=== PATIENT | female | born 1960 | race Caucasian/White ===

== ENCOUNTER 2025-02-12 15:12 | Inpatient (IN) | payer OTHER, SELFPAY ==
[2025-02-12] VITALS (13 sets, daily range): BP systolic 99–126; BP diastolic 57–75; BMI 20.5
--- NOTE | 2025-02-12 09:55 | ED.GENMED ---
History of Present Illness
General
Chief Complaint: Overdose Unintentional
Time Seen by Provider: 02/12/25 09:54
History of Present Illness
History of Present Illness:
TIME OF INITIAL ENCOUNTER: 9:50 AM
HPI: I spoke to EMS for history. The patient came in from home by ambulance due to being found unresponsive. The patient reportedly is on a Dilaudid infusion and also takes oral Dilaudid. She was found with agonal respirations and pinpoint
pupils. She was given 1 mg of Narcan earlier. Blood sugar was normal. EMS also reports that the patient had been depressed related to her son who was mental illness. She was given an additional 1 mg of Narcan prior to arrival by EMS. Of note
stated that her blood sugars around 50 and did give her juice earlier this morning.She was slightly hyperglycemic for EMS.
EXAM:
GENERAL: The patient is ill-appearing and obtunded
HEENT: Moist oral mucosa
HEAD: There is erythema surrounding granulation tissue over the left parietal scalp
CARDIOVASCULAR: No murmurs, normal heart rate, regular rhythm, No chest wall tenderness
PULMONARY: No respiratory distress, breath sounds are clear and equal
ABDOMEN: Soft with no peritoneal signs, no tenderness
NEUROLOGIC: Fair strength all extremities, obtunded
PSYCHIATRIC: The patient has trouble focusing and could not accurately state her current last name (continued to state her maiden name), poor insight and judgment
EXTREMITIES: Nontender, no edema, moves all extremities equally
SKIN: Throughout her stay in the ED, the patient became somewhat diaphoretic
NUMBER AND COMPLEXITY OF PROBLEMS ADDRESSED AT THE ENCOUNTER
� Chronic conditions affecting care: Pancreatitis on Creon, smoker, anxiety/depression
� Acute Exacerbation and/or Progression of Chronic Illness: This is an acute problem
� Differential Diagnosis includes: Narcotic misuse, narcotic overuse, polypharmacy
AMOUNT AND/OR COMPLEXITY OF DATA TO BE REVIEWED AND ANALYZED
� I performed an independent evaluation of and my interpretation is:
EKG: Sinus 57, rightward axis deviation, poor R wave progression, nonspecific ST abnormality
CT: CT head shows no acute abnormality
X-rays: I see no clear sign of abnormality on chest x-ray including no sign of aspiration.
Laboratory Studies: White count 7.7, hemoglobin 12.6, other than glucose of 300+, chemistries unremarkable, alcohol undetected
Other:
� Review of other/old records: I reviewed records from 2015 which shows some scanned in records from [place] (alcoholic pancreatitis)
� Clinical information was obtained by an independent historian: I spoke to at bedside. He states that the used to go to [place] but has had multiple terrible experiences there they do not want to go back there. She
is on a pain pump known to Arcadio Grande and states that her pain pump is set monthly and he has no way of adjusting the dosing. states that she takes Dilaudid 3 times a day orally as well
� Prescriptions/Medications Considered but not given:
� Further testing considered but not performed:
RISK OF COMPLICATIONS AND/OR MORBIDITY OR MORTALITY OF PATIENT MANAGEMENT
� Social determinants of health affecting care: Lives at home with
� Discussion with other providers: I discussed case with her painter helper spray, Arcadio Grande who recommended that I speak to Dr. Joy of the [facility], . I spoke to Dr. Joy who recommends
supportive care including additional Narcan if needed. He agrees to see the patient in consult. I also spoke to Jany, ED pharmacist who indicates the patient has a Medtronic intrathecal pain pump located in the left lower abdomen.
� Escalation of care including admission/observation vs risk of discharge considered: The patient is overall improved compared to upon EMS initial evaluation after 2 rounds of 1 mg Narcan. Her respiratory rate through the
emergency department stay is near 20 but is rather shallow. The patient still cannot provide any meaningful history. She still appears obtunded. She is not well enough to go home. I spoke to pain management as summarized above.
ANY OTHER UPDATES:
I reevaluated patient several times in the emergency department. Each time there has been some slight improvement regarding her mental status and overall level of consciousness. Her respiratory rate has remained the same throughout her stay in the
Emergency Department. Planning on having her kept in the hospital in case she needs more Narcan.
1 PM: I reassessed patient. The patient still has decreased level of consciousness and diaphoretic. Awaiting hospitalist for admission. Will give additional IV fluids as her blood pressure is slightly lower now. Suspect polypharmacy.
states that she also takes a benzo once a day. He also tells me that the pain management doctors also gave her a medicine 'to boost the effects of the narcotic' but is not sure what they gave her (Movantik?).
Past History
Social History
Tobacco: Smoker
Alcohol: Occasional
Drug: None
Living: with family
Employment: Not employed
Family History
Family History: Other (Noncontributory)
Phy Exam
Physical Exam
Physical Exam:
See HPI
Course
Orders/Labs/Results
Orders:
Orders
02/12/25 09:54
0.9% Sodium Chloride 1000 ml [Nss] 1,000 ml IV BOLUS
02/12/25 09:55
CT Head W/o Iv Contrast Urgent
Comment:
Reason For Exam: alt ms
02/12/25 10:01
Naloxone [Narcan] 0.4 mg .ROUTE .STK-MED ONE
02/12/25 10:03
Alcohol Urgent
Complete Blood Count/With Diff Urgent
Comprehensive Metabolic Panel Urgent
Lipase Urgent
Magnesium Urgent
Total CK [Creatine Phosphokinase] Urgent
02/12/25 11:25
Electrocardiogram (*1) Urgent
Reason for Study: Shortness of Breath
EKG- Treatment ONCE
02/12/25 11:26
CR Chest Portable - 1 View Urgent
Comment:
Reason For Exam: unresponsive, vomited, narcan, ?aspiration
Reason Study Needs to be Portable: Patient Unstable
02/12/25 11:59
Fentanyl, Urine Urgent
Urinalysis Reflex To Culture Urgent
Date Specimen was Collected: 02/12/25
Time Specimen was Collected: 11:42
Urine Drug Abuse Screen Urgent
Date Specimen was Collected: 02/12/25
Time Specimen was Collected: 11:42
Urine Microscopic Reflex Cult Urgent
02/12/25 13:01
NSS 1000mL Bolus WIDE OPEN 0.9% Sodium Chloride 1000 ml [Nss] 1,000 ml IV BOLUS
Abnormal Lab Results
02/12/25 02/12/25
10:03 11:59
RBC 3.89 L 10^6/uL
(4.20-5.40)
MCH 32.4 H pg
(27.0-31.0)
Eosinophils % 6.1 H %
(0-6)
BUN 18 H mg/dl
(7-17)
Creatinine 0.5 L mg/dL
(0.6-1.0)
Glucose 325 H mg/dl
(70-99)
Total Protein 5.9 L g/dl
(6.3-8.2)
Lipase 18 L U/L
(23-300)
Ur Occult Blood Reflex 4+ A
(Negative)
Urine Glucose 4+ A
(Negative)
Urine Albumin (Reflex) 2+ A
(Neg - Trace)
Urine Opiates Screen Positive H
(Negative)
Ur Tricyclics Screen Positive H
(Negative)
U Benzodiazepines Scrn Positive H
(Negative)
02/12/25 10:03
02/12/25 10:03
Vital Signs
Initial and Last Documented VS:
Initial Vital Signs
Temp Pulse Resp BP Pulse Ox
37.5 C 75 20 121/69 99
02/12/25 09:50 02/12/25 09:50 02/12/25 09:50 02/12/25 09:50 02/12/25 09:50
Last Documented Vital Signs
Temp Pulse Resp BP Pulse Ox
37.5 C 57 15 101/58 96
02/12/25 09:50 02/12/25 12:15 02/12/25 12:15 02/12/25 12:00 02/12/25 12:15
*Critical Care Note
Total Time (30-74mins, 75-104mins- exclusive of procedures): 45 minutes
comment:
The patient arrives obtunded. I frequently reassessed the patient and considered Narcan however the patient's respiratory rate has remained normal. She remains somewhat ill-appearing and will require hospitalization. I continue to reassess her
frequently to assess for any need for Narcan.
ED Attending Note
-
Portions of this chart may have been created with voice recognition software.� Occasional wrong word or��sound alike� substitutions may have occurred due to the inherent limitations of voice recognition software.
Discharge Plan
Departure
Patient Disposition: Admit
Date of Disposition: 02/12/25
Time of Disposition: 12:23
Presentation/result/management discussed w/ accepting MD/DO: Hospitalist
Patient with high blood pressure during this ER visit?: Yes
Discharge Problem:
Narcotic overdose
Prescriptions:
No Action
duloxetine 60 MG capsule,delayed release(DR/EC)
120 mg PO DAILY
gabapentin 600 mg tablet
600 mg PO TID
tizanidine 4 mg tablet
4 mg PO HS
quetiapine 200 mg tablet
200 mg PO QPM
quetiapine 100 mg tablet
100 mg PO DAILY
alprazolam 0.5 mg tablet
0.5 mg PO BID
insulin aspart U-100 [Novolog U-100 Insulin aspart] 100 unit/mL solution
6 unit SC MEALS
bupropion HCl 75 mg tablet
75 mg PO DAILY
hydromorphone 4 mg tablet
4 mg PO Q6HPRN PRN (Reason: severe/breakthrough pain)
Linzess 145 mcg capsule
145 mcg PO DAILY
Movantik 25 mg tablet
25 mg PO DAILY
Hydromorphone Bupivicaine Pump
1 dose intrathecal .CONTINUOUS
Rx Instructions:
02/12/25: confirmed with [facility]
Medtronic impantable pump - intrathecal continuous infusion
hydromorphone 0.208 mg/hr ; bupivicaine 0.1029 mg/hr
Last filled 01/01/25; next fill due 02/15/25
Referrals:
NONE,* [Family Provider] -
Interventions
Interventions:
*Risk Screen - Suicide Last Done: 02/12/25 09:50
*General Assessment Last Done: 02/12/25 09:50
*Neglect/Abuse Screening Last Done: 02/12/25 09:50
ED- Cardiac Assessment Last Done: 02/12/25 11:18
ED- Neurological Assessment Last Done: 02/12/25 11:18
ED-Psychological Assessment Last Done: 02/12/25 11:18
ED- Pulmonary Assessment Last Done: 02/12/25 11:18
Discharge Date and Time
Print Language: MONEGASQUE
[2025-02-12] MEDS: NSS 1000 IV ×3 (10:05→16:51)
[2025-02-12 10:14] LABS: % Eosinophils 6.1 % (0-6); % Immature Granulocytes 0.1 % (0-0.5); % Lymphocytes 35.2 % (20.5-51.1); % Monocytes 7.3 % (1.7-9.3); % Neutrophils 50.3 % (42.2-75.2); Absolute Basophils 0.1 10^3/uL (0-0.2); Absolute Eosinophils 0.5 10^3/uL (0-0.7); Absolute Lymphocytes 2.7 10^3/uL (1.2-3.4); Absolute Monocytes 0.6 10^3/uL (0.1-0.6); Absolute Neutrophils 3.9 10^3/uL (1.4-6.5); Hematocrit 37.2 % (37.0-47.0); Hemoglobin 12.6 g/dL (12.0-16.0); Mean Corp Hgb Conc. 33.9 g/dL (33.0-37.0); Mean Corpuscular Hgb 32.4 pg (27.0-31.0); Mean Corpuscular Volume 95.6 fL (81.0-99.0); Mean Platelet Volume 10.4 fL (7.4-10.4); Nucleated Red Blood Cells % 0 %; Platelet Count 298 10^3/uL (130-400); Red Blood Cell Count 3.89 10^6/uL (4.20-5.40); White Blood Cell Count 7.7 10^3/uL (4.8-10.8)
[2025-02-12 10:24] LABS: ALT (SGPT) 25 U/L (0-35); AST (SGOT) 23 U/L (14-36); Albumin 3.5 g/dl (3.5-5.0); Alkaline Phosphatase 98 U/L (38-126); Blood Urea Nitrogen 18 mg/dl (7-17); Calcium 9.2 mg/dl (8.4-10.2); Carbon Dioxide 30 mmol/L (22-30); Chloride 105 mmol/L (98-107); Creatine Phosphokinase 55 U/L (30-135); Glucose 325 mg/dl (70-99); Lipase 18 U/L (23-300); Magnesium 1.8 mg/dl (1.6-2.3); Potassium 4.2 mmol/L (3.5-5.1); Sodium 141 mmol/L (135-145); Total Bilirubin 0.4 mg/dl (0.2-1.3); Total Protein 5.9 g/dl (6.3-8.2); eGFR > 60.00
[2025-02-12 10:26] LABS: Alcohol None Detected
--- NOTE | 2025-02-12 11:02 | PHANOTE ---
Med Rec Note:
Spouse unsure of all medications, besides Hydromorphone Tablets and Hydromorphone pain pump. Called [facility] pharmacy for medication confirmation and directions.
[2025-02-12 12:37] LABS: Urine Albumin 2+ (Neg - Trace); Urine Bilirubin Negative (Negative); Urine Character Clear (Clear); Urine Color Yellow; Urine Glucose 4+ (Negative); Urine Ketone Negative (Negative); Urine Leukocyte Negative (Negative); Urine Nitrite Negative (Negative); Urine Occult Blood 4+ (Negative); Urine Urobilinogen Negative (Neg - 1+)
[2025-02-12 12:49] LABS: Amphetamines Negative (Negative); Barbiturates Negative (Negative); Benzodiazepines Positive (Negative); Buprenorphine Negative (Negative); Cocaine Negative (Negative); Methamphetamines Negative (Negative); Opiates Positive (Negative); Tricyclic Antidepressants Positive (Negative)
[2025-02-12 12:50] LABS: Marijuana Negative (Negative); Methadone Negative (Negative); Phencyclidine Negative (Negative)
[2025-02-12 13:04] LABS: Urine Bacteria Few (Negative); Urine Red Blood Cell 30-40 /HPF (0-2); Urine Squamous Cell 0-2 /LPF (Few); Urine White Cell 0-2 /HPF (0-5)
[2025-02-12 13:08] LABS: Fentanyl, Urine Negative (Negative)
[2025-02-12 14:46] LABS: B.E. 0.6 mmol/L; HCO3 26.6 mmol/L (21-28); O2 Saturation % 99.5 % (94-98); PCO2 47 mmHg (32-35); PO2 111 mmHg (83-108); pH 7.36 (7.35-7.45)
[2025-02-12 15:44] LABS: Glucose - Point of Care 283 mg/dl (70-99)
--- NOTE | 2025-02-12 17:13 | HPS.HSE ---
Addendum entered and electronically signed by Tahmina Melo MD 02/12/25 17:50:
I personally performed a history and physical exam of the patient and discussed management with the resident. I reviewed the resident's note and agree with the documented findings and plan of care HPI/CC.
GENERAL: chronically ill appearing female appears older than stated age in no apparent distress--sleepy but responsive
HEENT: NC/AT--O2 NC in [address]--poor dentition
HEART: regular rate and rhythm, +S1, +S2
LUNGS : clear to auscultation bilaterally
ABDOM: soft, tender diffusely no guarding or rebound, nondistended, + bowel sounds--intrathecal pump noted on abdomen
EXT: no cyanosis, clubbing, or edema
NEUROLOGIC: sleepy but responsive
change in MS/obtunded--Suspected opioid overdose secondary to medicating with opioids, benzodiazepines, tricyclic antidepressants--admit to IMU--consult Dr. Joy from pain management-- Monitor respiratory status and oxygenation level- Narcan as
needed- Neurochecks every 2 hours-IV fluids- N.p.o.- Physical therapy/Occupational Therapy- Speech therapy
Microscopic hematuria seen on urinalysis--No recent history of coagulants, antiplatelet agents, urinary tract infections, kidney stones, malignancies, dysuria has a history of smoking since 13 years- Renal ultrasound with bladder- Monitor renal
function- Repeat urinalysis- IV fluids
Type 2 DM with Hyperglycemia--uncontrolled--SSI--check HGB F6G--eitu insulin as able
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
Depression/anxiety-- Held bupropion, duloxetine, alprazolam
DVT proph --Enoxaparin
code status--FULL CODE
Original Note:
Family Physician
-
Family Physician: * NONE
Chief Complaint
-
Patient was in a obtunded state.
History of Present Illness
64-year-old female, full code was found other Unresponsive today morning found by her to understate with mouth open and tongue hanging out. He checked her blood sugar using a glucometer at home since she is a diabetic and found her blood
sugar to be 49, then gave her orange juice, then sugar went up to 75. However she was still not responsive so they called EMS and she arrived to [place] ED via ambulance. Has an intrathecal pain pump on the left side of her abdomen for chronic
pancreatitis treated through Whipple's procedure. Currently on hydromorphone administered by her pain specialist at [facility].
Medical History
Past Medical History
Past Medical History: Reports IDDM and Other (Depression, pancreatitis)
Past Surgical History: Reports Other (Whipples procedure)
Social History
Tobacco: Smoker (Pack a day since 13 years)
Alcohol: Former (Quit 12 years ago)
Drug: None
Personal:
Living: With Family
Employment: Disabled
Family History
Family History: Not pertinent
Allergies / Home Medications
Allergies reflects when Allergies were last updated in [employer].
Home Medications with original date entered in [employer]
Allergy/Medication List:
Allergies
Allergy/AdvReac Type Severity Reaction Status Date / Time
codeine Allergy Rash Verified 02/12/25 10:01
morphine Allergy Swelling Verified 02/12/25 10:01
oxycodone Allergy Rash Verified 02/12/25 10:01
Home Medications
duloxetine 60 mg capsule,delayed release 120 mg PO DAILY 05/13/15
Hydromorphone Bupivicaine Pump 1 dose intrathecal .CONTINUOUS chronic pain 02/12/25
alprazolam 0.5 mg tablet 0.5 mg PO BID 02/12/25
bupropion HCl 75 mg tablet 75 mg PO DAILY 02/12/25
gabapentin 600 mg tablet 600 mg PO TID 02/12/25
hydromorphone 4 mg tablet 4 mg PO Q6HPRN PRN severe/breakthrough pain 02/12/25
insulin aspart U-100 100 unit/mL subcutaneous solution (Novolog U-100 Insulin aspart) 6 unit SC MEALS 02/12/25
linaclotide 145 mcg capsule (Linzess) 145 mcg PO DAILY 02/12/25
naloxegol 25 mg tablet (Movantik) 25 mg PO DAILY 02/12/25
quetiapine 100 mg tablet 100 mg PO DAILY 02/12/25
quetiapine 200 mg tablet 200 mg PO QPM 02/12/25
tizanidine 4 mg tablet 4 mg PO HS 02/12/25
Review of Systems
-
Constitutional: Denies Fever or Chills
Respiratory: Denies Cough
Cardiac: Denies Chest Pain or Palpitations
Abdomen/GI: Denies Abdominal Pain, Nausea, Vomiting or Diarrhea
: Reports Difficulty Voiding
Musculoskeletal: Denies Joint Pain
Skin: Denies Itching or Rash
Physical Exam
Vital Signs
Vital Signs
Temp Pulse Resp BP Pulse Ox
99.5 F 44 12 101/59 96
02/12/25 09:50 02/12/25 16:00 02/12/25 16:00 02/12/25 16:00 02/12/25 15:45
Physical Exam
General: Cachectic
Respiratory: Clear
Cardiac: S1/S2 and Regular Rhythm
GI: Soft, Non Tender and Non Distended
Skin: Warm and Dry
Neuro: Awake, Alert, Oriented and AO x 3
Laboratory Results
-
02/12/25 10:03
02/12/25 10:03
Laboratory Results
pH 7.36 (7.35-7.45) 02/12/25 14:39
pCO2 47 mmHg (32-35) H 02/12/25 14:39
pO2 111 mmHg (83-108) H 02/12/25 14:39
HCO3 26.6 mmol/L (21-28) 02/12/25 14:39
Total Bilirubin 0.4 mg/dl (0.2-1.3) 02/12/25 10:03
AST 23 U/L (14-36) 02/12/25 10:03
ALT 25 U/L (0-35) 02/12/25 10:03
Alkaline Phosphatase 98 U/L (38-126) 02/12/25 10:03
Lipase 18 U/L (23-300) L 02/12/25 10:03
Data Reviewed
-
CT Scan: Report Reviewed by me and Discussed with Physician
MRI: Report Reviewed by me and Discussed with Physician
Lab Data: Labs Reviewed by me and Discussed with Physician
Impression/Plan
-
Suspected opioid overdose secondary to medicating with opioids, benzodiazepines, tricyclic antidepressants:
- Admit to IMU
- Monitor respiratory status and oxygenation level
- Narcan as needed
- Neurochecks every 2 hours-IV fluids
- N.p.o.
- Physical therapy/Occupational Therapy
- Speech therapy
- CBC, CMP
- Try to consult with her pain doctor at [facility]
Microscopic hematuria seen on urinalysis:
-No recent history of coagulants, antiplatelet agents, urinary tract infections, kidney stones, malignancies, dysuria has a history of smoking since 13 years
- Renal ultrasound with bladder
- Monitor renal function
- Repeat urinalysis
- IV fluids
Hyperglycemia
-monitor blood glucose
- HbA1c
- Sliding scale insulin, Lantus 22 units
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
- On intrathecal left-sided abdominal pain pump
- Held pain medications that she takes at home like hydromorphone and gabapentin until evaluated by pain
Depression/anxiety:
- Held bupropion, duloxetine, alprazolam
Enoxaparin 30 Mg for DVT prophylaxis
Full code
[2025-02-12 18:34] LABS: Glucose - Point of Care 238 mg/dl (70-99)
[2025-02-12] MEDS: NICODERM TRANSDERMAL 21 MG TRANSDERM (20:33)
[2025-02-12 22:14] LABS: Glucose - Point of Care 217 mg/dl (70-99)
[2025-02-12] MEDS: NOVOLOG FLEXPEN-HIGH RESISTANCE SC (22:17)
[2025-02-12] MEDS: LANTUS 0.22 UNITS SC (22:20)
[2025-02-12] MEDS: NOVOLOG FLEXPEN-HIGH RESISTANCE 4 UNITS SC (23:54)
[2025-02-13] VITALS (17 sets, daily range): BP systolic 103–143; BP diastolic 58–77; PULSE 42–52; O2SAT 96–99
[2025-02-13] MEDS: NSS 1000 IV (02:32)
--- NOTE | 2025-02-13 03:10 | PTCARENOTE ---
Rec'd pt as admit from ED. Pt AAOx3, drowsy but arousable to voice. Pt states feeling tired, having little memory of what occurred that brought her to ED, but overall understanding of current situation and status. SB on CM, as low as 30. PILER
contacted, 2L O2 placed per PILER recommendation. Pt c/o urge to void, but only able to void 100mls. Bladder scan >400. Straight cath with output 600ml. Pt continues with c/o urge to void. Education provided, will continue to bladder scan per
protocol. Call alexander within reach.
[2025-02-13 04:44] LABS: % Basophils 0.8 % (0-2); % Eosinophils 3.8 % (0-6); % Immature Granulocytes 0.3 % (0-0.5); % Lymphocytes 23.3 % (20.5-51.1); % Monocytes 6.5 % (1.7-9.3); % Neutrophils 65.3 % (42.2-75.2); Absolute Basophils 0.1 10^3/uL (0-0.2); Absolute Eosinophils 0.3 10^3/uL (0-0.7); Absolute Lymphocytes 2.1 10^3/uL (1.2-3.4); Absolute Monocytes 0.6 10^3/uL (0.1-0.6); Absolute Neutrophils 5.9 10^3/uL (1.4-6.5); Hematocrit 36.7 % (37.0-47.0); Hemoglobin 12.2 g/dL (12.0-16.0); Mean Corp Hgb Conc. 33.2 g/dL (33.0-37.0); Mean Corpuscular Hgb 32.2 pg (27.0-31.0); Mean Corpuscular Volume 96.8 fL (81.0-99.0); Mean Platelet Volume 10.5 fL (7.4-10.4); Nucleated Red Blood Cells % 0 %; Platelet Count 279 10^3/uL (130-400); Red Blood Cell Count 3.79 10^6/uL (4.20-5.40); Red Cell Dist. Width 13.1 % (11.5-14.5)
[2025-02-13] MEDS: TORADOL 30 MG IV (05:01)
[2025-02-13 05:18] LABS: ALT (SGPT) 19 U/L (0-35); AST (SGOT) 20 U/L (14-36); Albumin 2.9 g/dl (3.5-5.0); Alkaline Phosphatase 84 U/L (38-126); Blood Urea Nitrogen 14 mg/dl (7-17); Calcium 8.5 mg/dl (8.4-10.2); Carbon Dioxide 26 mmol/L (22-30); Chloride 116 mmol/L (98-107); Creatine Phosphokinase 35 U/L (30-135); Estimated Creatinine Clearance 76 ml/min; Glucose 75 mg/dl (70-99); Magnesium 1.8 mg/dl (1.6-2.3); Potassium 3.8 mmol/L (3.5-5.1); Sodium 144 mmol/L (135-145); Total Bilirubin 0.4 mg/dl (0.2-1.3); Total Protein 5.2 g/dl (6.3-8.2); eGFR > 60.00
[2025-02-13 05:47] LABS: TSH 0.88 uIU/ml (0.47-4.68)
[2025-02-13] MEDS: LINZESS 145 MCG PO (05:57)
--- NOTE | 2025-02-13 07:34 | CON.NEURO4 ---
Consultation - Neurology 4
-
CONSULTING PHYSICIAN:
REFERRING PHYSICIAN:
DICTATED BY:
DATE/TIME OF REQUEST:
DATE/TIME OF CONSULTATION:
Reason for Consultation:
History of Present Illness:
This is a 64 year old female with a history significant for chronic pancreatitis with chronic pain s/p implanatation of intrathecal drug delivery system who has presented to the hospital byy way of ambulance for change in mental status. She was
found minimally responsive by her upon awakening on the morning of 02/12. He called EMS. Reportedly, narcan was provided by paramedics in the field, and the patient became more responsive.
No recent changes in her opioid regimen. No changes in medication regimen.
As per patient report, she went to sleep around 5pm the evening prior, which is normal for her. She recalls taking the usual dose of oral hydromorphone, and she does not recall accidental overdose. She occasionally awakens from sleep overnight to
take additional medication, but she does not recall this.
She denies accidental or intentional overdose. She denies suicidal ideations.
The last refill of her intrathecal drug delivery system was on 12/28. She has had the pain pump for years. No recent changes in her intrathecal regimen. She receives hydromorphone 15mg/mL @ 5.0 mg/day and bupivicaine 7.4mg/mL @ 2.46 mg/day.
Past Medical History: Chronic pancreatitis, DM, Depression,
Surgical History: Whipple procedure, Pancreatic stenst, hysterectomy, , Intrathecal Pump Implant ([employer])
Family History: non contributory
Social History: Smoker; Alcoholism (sober for years), Lives with and son
Allergies: codeine, morphine, oxycodone
Home Medications:
alprazolam .5 bid
bupropioin 75 daily
duloxetine 120 daily
gabapentin 600 tid
Hydromorphone 4 q6hrs prn
Hydromorphone 15mg/mL via Intrathecal Drug Delivery system at 5mg/day
Bupivicaine 7.4 mg/mL via Intrathecal Drug Delivery system at 2.46 mg/day
Insulin
Linzess 145 mcg daily
Movantik
Quetiapine 200 qpm
Quetiapine 100mg daily
Tizanidine
Review of Symptoms:
Patient denies any fever, headache, chest pain, shortness of breath, GI or symptoms.
�
Vital Signs:
37.5 75 14 121/69 99 on RA
Physical Exam:
Neurologic Examination:
The patient is awake, alert and oriented x 3. She is able to follow commands and answer questions appropriately. There is no aphasia or dysarthria. On cranial nerve assessment, pupils are 3 mm bilateral, round and reactive to light. Extraocular
movements are intact. There is no facial asymmetry. Hearing is intact bilaterally to normal conversation volume. Tongue palate and uvula are midline. Sternocleidomastoid strengths are full bilaterally. Motor strengths are 5/5 bilateral upper and
lower extremities. There is no drift or involuntary movement noted. Coordination is intact by finger to nose bilaterally.
Lab Results: Reviewed
Impression:
Ms. PHOENIX COOK is a 64 year old F who has presented to the hospital with altered mental status. She has a history significant for chronic pancreatitis s/p whipple procedure with chronic abdominal pain s/p implant of Medtronic Intrathecal Drug
Delivery System.
I interrogated the pain pump at today's visit. There are no alarms. There are no recent changes in the therapy. Patient will be due for a refill of her reservoir in the next week. It is unlikely that malfunction of the pain pump or overdose by
pain pump would account for her episode of altered mental status since she has been stable on the current regimen since her last refill on 12/28. At that visit, bupivicaine was added to her intrathecal therapy, but this should not cause altered
mental status. Since patient does not have any control of the intrathecal dose, it is not likely that overdose could have occurred through the pump by the patient.
She uses mulitple potentially sedating oral therapies including hydromorphone PO 4mg qid. Her last refill was on 01/27 as per PDMP and pill bottle. Pill counts today reveal that she has 48.5 tablets remaining. The reports that this is her
entire supply. She should have 56 tablets remaining, so she is short for the month. This suggests that there may have been an inadvertent overdose.
1. I am recommending continued observation for at least 24 hours to assure that her mental status clears.
2. Urine toxicology screen recommended
3. Hold hydromorphone PO now and on discharge.
4. Discuss with psychiatry the need to hold other potentially sedating medications including benzos
5. Patient has intranasal naloxone at home
Rajinder Joy MD
[2025-02-13] MEDS: NICODERM TRANSDERMAL 21 MG TRANSDERM (08:34)
[2025-02-13 09:06] LABS: Glucose - Point of Care 78 mg/dl (70-99)
[2025-02-13] MEDS: NOVOLOG FLEXPEN-HIGH RESISTANCE 1 UNITS SC (09:49)
--- NOTE | 2025-02-13 10:37 | W.PN.HOSP.TC ---
Today's Communication/Plan
-
observe today
stop IVF
standing toradol/tylenol next 24 hours
Assessment / Plan
Assessment / Plan
pt is a 64 year old female
change in MS/obtunded--Suspected opioid overdose secondary to medicating with opioids, benzodiazepines, tricyclic antidepressants--apprec Dr. Joy from pain management, hold oral hydromorphone now and at d/c-- Monitor respiratory status and
oxygenation level- Narcan as needed-- Physical therapy/Occupational Therapy- Speech therapy
Microscopic hematuria seen on urinalysis--No recent history of coagulants, antiplatelet agents, urinary tract infections, kidney stones, malignancies, dysuria has a history of smoking since 13 years- Renal ultrasound with bladder- Monitor renal
function
Type 2 DM with Hyperglycemia--uncontrolled--SSI--check HGB Q3Y--btol insulin as able
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
Depression/anxiety-- Held bupropion, duloxetine, alprazolam
DVT proph --Enoxaparin
code status--FULL CODE
Anticipated Discharge: Within 24 hours
Subjective/Interval History
-
Date of Service: February 13, 2025
pt in tears complaining she is in pain--explained Dr. Joy's thinking--she refutes that she took extra meds (says she ALWAYS has leftover meds before her refill)
Objective Data
-
Labs:
Laboratory Results
02/13/25
04:24
WBC 9.0
Hgb 12.2
Hct 36.7 L
Plt Count 279
Sodium 144
Potassium 3.8
Chloride 116 H
Carbon Dioxide 26
BUN 14
Creatinine 0.4 L
Glucose 75
Calcium 8.5
Total Bilirubin 0.4
AST 20
ALT 19
Alkaline Phosphatase 84
Vital Signs:
max temp for 24 hours
02/12/25
09:50
Temp 99.5 F
Vital Signs
Temp Pulse Resp BP Pulse Ox
98.9 F 46 12 120/66 95
02/13/25 07:00 02/13/25 08:00 02/13/25 08:00 02/13/25 08:00 02/13/25 08:00
I&O
02/12/25 02/13/25 02/14/25
06:59 06:59 06:59
Output Total 700 / 700 225 / 225
Balance -700 / -700 -225 / -225
Review of Systems
-
Abdomen/GI: Reports Abdominal Pain
Physical Exam
-
General: Appears Chronically Ill
HEENT: Normocephalic and Atraumatic
Respiratory: Clear to Auscultation; Negative Wheezes or Rhonchi
Cardiac: Regular Rhythm and S1/S2; Negative Murmur
GI: Soft, Normal Bowel Sounds, Tender and Distended
Musculoskeletal: No Clubbing, No Cyanosis and No Edema
Skin: Warm
Neuro: Awake
Psych: Other (tearful, upset)
--- NOTE | 2025-02-13 10:48 | PTOTSP ---
Speech Therapy
Presentation: Patient was oriented and participatory. Patient's voice appeared to be weak but patient stated that is her baseline.
Swallowing Function: Patient was observed with several bites of regular consistency solids and sips of thin liquids in which patient appeared to tolerate as she did not exhibit any overt clinical s/sx of aspiration. Patient did, of note, demonstrate
a dry cough at the end of the session which may or may not have been related to the PO trials.
Given patient's report of having intermittent food 'stuck in her throat' and delayed cough, will continue to follow to ensure tolerance and r/o aspiration risk.
Recommendations:
1) regular consistency solids and thin liquids
2) standard aspiration precautions
3) medications as tolerated (per RN, whole with thin liquids)
Plan: PROSTHETIC MAKEUP DESIGNER will continue to follow to ensure tolerance of PO; pending hospitalization.
[2025-02-13] MEDS: NSS IV (11:46)
[2025-02-13] MEDS: TORADOL 15 MG IV ×3 (11:46→23:22)
[2025-02-13] MEDS: TYLENOL 650 MG PO ×4 (11:46→23:21)
[2025-02-13 12:46] LABS: Glucose - Point of Care 60 mg/dl (70-99)
[2025-02-13] MEDS: NOVOLOG FLEXPEN-HIGH RESISTANCE SC ×2 (12:47→18:09)
[2025-02-13 13:18] LABS: Glucose - Point of Care 84 mg/dl (70-99)
[2025-02-13] MEDS: LOVENOX 40 MG SC (17:31)
[2025-02-13 18:08] LABS: Glucose - Point of Care 115 mg/dl (70-99)
[2025-02-13] MEDS: LANTUS 0.18 UNITS SC (21:31)
[2025-02-13 21:39] LABS: Glucose - Point of Care 153 mg/dl (70-99)
[2025-02-14] VITALS (7 sets, daily range): BP systolic 112–130; BP diastolic 66–88; PULSE 62–71; O2SAT 97; BMI 20.6
--- NOTE | 2025-02-14 00:30 | PTCARENOTE ---
Pt woke tearful, anxious, c/o mild chest discomfort. EKG performed and appears similar to previous. SURGERY SCHEDULING COORDINATOR notified. Comfort provided, scheduled toradol and tylenol given per JAN. Pt able to ambulate to BSC with assistx1. Pt reports symptoms resolved.
Call alexander within reach. Care ongoing.
[2025-02-14] MEDS: TYLENOL 650 MG PO ×5 (03:22→20:58)
[2025-02-14 03:38] LABS: Glucose - Point of Care 68 mg/dl (70-99)
[2025-02-14 04:20] LABS: Glucose - Point of Care 85 mg/dl (70-99)
[2025-02-14] MEDS: LINZESS 145 MCG PO (05:10)
[2025-02-14] MEDS: TORADOL 15 MG IV ×4 (05:10→23:40)
[2025-02-14 05:59] LABS: Hematocrit 36.7 % (37.0-47.0); Hemoglobin 12.3 g/dL (12.0-16.0); Mean Corp Hgb Conc. 33.5 g/dL (33.0-37.0); Mean Corpuscular Hgb 31.9 pg (27.0-31.0); Mean Corpuscular Volume 95.1 fL (81.0-99.0); Mean Platelet Volume 11.1 fL (7.4-10.4); Platelet Count 279 10^3/uL (130-400); Red Blood Cell Count 3.86 10^6/uL (4.20-5.40); Red Cell Dist. Width 13.1 % (11.5-14.5); White Blood Cell Count 7.7 10^3/uL (4.8-10.8)
[2025-02-14 06:13] LABS: Blood Urea Nitrogen 15 mg/dl (7-17); Calcium 8.7 mg/dl (8.4-10.2); Carbon Dioxide 27 mmol/L (22-30); Chloride 112 mmol/L (98-107); Estimated Creatinine Clearance 76 ml/min; Glucose 64 mg/dl (70-99); Magnesium 1.9 mg/dl (1.6-2.3); Potassium 3.8 mmol/L (3.5-5.1); Sodium 143 mmol/L (135-145); eGFR > 60.00
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
[2025-02-14] MEDS: NOVOLOG FLEXPEN-HIGH RESISTANCE SC ×3 (08:50→16:32)
[2025-02-14 08:52] LABS: Glucose - Point of Care 70 mg/dl (70-99)
[2025-02-14] MEDS: NICODERM TRANSDERMAL 21 MG TRANSDERM (09:00)
[2025-02-14] MEDS: SENOKOT-S 1 TABLET PO (09:02)
--- NOTE | 2025-02-14 09:16 | W.PN.HOSP.TC ---
Today's Communication/Plan
-
await re-eval by PT/OT--hopeful d/c home
Assessment / Plan
Assessment / Plan
pt is a 64 year old female
change in MS/obtunded--resolved--Suspected opioid overdose secondary to medicating with opioids, benzodiazepines, tricyclic antidepressants--apprec Dr. Joy from pain management, hold oral hydromorphone now and at d/c-- Physical
therapy/Occupational Therapy- Speech therapy
Microscopic hematuria seen on urinalysis--No recent history of coagulants, antiplatelet agents, urinary tract infections, kidney stones, malignancies, dysuria has a history of smoking since 13 years--Renal ultrasound with bladder not done yet
Type 2 DM with Hyperglycemia--uncontrolled--SSI--check HGB T1Z--trnj insulin as able
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
not
Depression/anxiety-- restart bupropion, duloxetine, alprazolam
DVT proph --Enoxaparin
code status--FULL CODE
Anticipated Discharge: Today
Subjective/Interval History
-
Date of Service: February 14, 2025
pt afraid to go home
Objective Data
-
Labs:
Laboratory Results
02/14/25
05:16
WBC 7.7
Hgb 12.3
Hct 36.7 L
Plt Count 279
Sodium 143
Potassium 3.8
Chloride 112 H
Carbon Dioxide 27
BUN 15
Creatinine 0.4 L
Glucose 64 L
Calcium 8.7
Vital Signs:
max temp for 24 hours
02/13/25
23:00
Temp 99.0 F
Vital Signs
Temp Pulse Resp BP Pulse Ox
98.7 F 48 15 128/66 98
02/14/25 03:00 02/14/25 08:00 02/14/25 08:00 02/14/25 04:00 02/14/25 08:00
I&O
02/13/25 02/14/25 02/15/25
06:59 06:59 06:59
Intake Total 1000 / 1000 240 / 240
Output Total 700 / 700 550 / 550
Balance 300 / 300 -310 / -310
Review of Systems
-
All other systems: Reviewed and negative
Physical Exam
-
General: Appears Chronically Ill
HEENT: Normocephalic and Atraumatic; Negative Oxygen
Respiratory: Clear to Auscultation; Negative Wheezes or Rhonchi
Cardiac: Regular Rhythm and S1/S2; Negative Murmur
GI: Soft, Normal Bowel Sounds, Tender and Distended
Musculoskeletal: No Clubbing, No Cyanosis and No Edema
Neuro: Awake
Psych: Depressed (crying, tearful)
--- NOTE | 2025-02-14 09:25 | PTCARENOTE ---
pt tearful when discussion regarding discharge brought up. Pt explaining that she 'doesn't feel right'. When asked in what way, explained that she is weak and afraid of going home to her son and that she was anxious. Informed pt that it's okay to
have big feelings, however it's important to process them in a healthy way instead of laying in bed throughout the entire day as that will only increase her weakness.
[2025-02-14] MEDS: CYMBALTA DELAYED RELEASE 120 MG PO (10:43)
[2025-02-14] MEDS: WELLBUTRIN REGULAR RELEASE PO (10:43)
--- NOTE | 2025-02-14 10:49 | PTCARENOTE ---
pt requesting pain medicine frequently despite being educated that pain management doctor recommending holding oral hydromorphone. Pt receiving tylenol and toradol scheduled. Pt upset regarding medication regimen.
[2025-02-14 12:23] LABS: Glucose - Point of Care 71 mg/dl (70-99)
[2025-02-14 16:33] LABS: Glucose - Point of Care 66 mg/dl (70-99)
[2025-02-14] MEDS: NEURONTIN 600 MG PO ×2 (17:39→20:59)
[2025-02-14] MEDS: LOVENOX 40 MG SC (17:40)
[2025-02-14] MEDS: SEROQUEL 200 MG PO (17:43)
[2025-02-14 21:07] LABS: Glucose - Point of Care 52 mg/dl (70-99)
[2025-02-14 21:21] LABS: Glucose - Point of Care 97 mg/dl (70-99)
[2025-02-14] MEDS: LANTUS 0.07 UNITS SC (22:09)
[2025-02-14] MEDS: TYLENOL PO (23:40)
[2025-02-15 03:01] VITALS: BP 112/72
[2025-02-15 03:02] LABS: Glucose - Point of Care 42 mg/dl (70-99)
[2025-02-15 03:21] LABS: Glucose - Point of Care 63 mg/dl (70-99)
[2025-02-15 03:34] LABS: Glucose - Point of Care 75 mg/dl (70-99)
[2025-02-15] MEDS: TYLENOL 650 MG PO ×6 (04:59→23:09)
[2025-02-15] MEDS: LINZESS 145 MCG PO (05:08)
[2025-02-15] MEDS: TORADOL 15 MG IV ×4 (05:08→23:03)
[2025-02-15 05:46] LABS: Glucose - Point of Care 63 mg/dl (70-99)
[2025-02-15 06:00] VITALS: BMI 20.5
[2025-02-15 06:01] LABS: Glucose - Point of Care 84 mg/dl (70-99)
[2025-02-15 07:34] VITALS: BP 113/62
[2025-02-15 07:46] LABS: Glucose - Point of Care 74 mg/dl (70-99)
[2025-02-15] MEDS: NOVOLOG FLEXPEN-HIGH RESISTANCE SC ×2 (08:03→11:21)
[2025-02-15] MEDS: NICODERM TRANSDERMAL 21 MG TRANSDERM (08:03)
[2025-02-15] MEDS: CYMBALTA DELAYED RELEASE 120 MG PO (08:03)
[2025-02-15] MEDS: NEURONTIN 600 MG PO ×3 (08:03→21:06)
[2025-02-15] MEDS: SEROQUEL 100 MG PO (08:03)
[2025-02-15] MEDS: WELLBUTRIN REGULAR RELEASE 75 MG PO (08:04)
[2025-02-15 08:32] LABS: Urine Albumin 2+ (Neg - Trace); Urine Bilirubin Negative (Negative); Urine Character Clear (Clear); Urine Color Yellow; Urine Glucose Negative (Negative); Urine Ketone Negative (Negative); Urine Leukocyte 2+ (Negative); Urine Nitrite Negative (Negative); Urine Occult Blood 4+ (Negative); Urine Specific Gravity 1.015 (<1.030); Urine Urobilinogen Negative (Neg - 1+)
[2025-02-15 08:59] LABS: Urine Bacteria Few (Negative); Urine Red Blood Cell >100 /HPF (0-2)
[2025-02-15 10:58] VITALS: BP 95/54
[2025-02-15 11:22] LABS: Glucose - Point of Care 64 mg/dl (70-99)
[2025-02-15] MEDS: LMX 4 1 APPLIC TOPICAL (11:46)
[2025-02-15 11:49] LABS: Glucose - Point of Care 71 mg/dl (70-99)
[2025-02-15 12:08] LABS: Glucose - Point of Care 75 mg/dl (70-99)
--- NOTE | 2025-02-15 12:10 | PTCARENOTE ---
Pt stating she does not feel 'herself'. feeling whifty, dizzy and slightly confused. Does not feel ready to go home today and pain remains an issue. Lidocane cream ordered and given. Care ongoing. Joel made aware.
--- NOTE | 2025-02-15 12:24 | VNURNOTE ---
[facility] liaison met with patient and spouse at bedside. Screened for detention needs at home. Patient stated she follows closely with pain management and has had intrathecal pump for 15 years. Spouse at bedside and stated he will
assist more with her meds at home. DOUBLE REAMER OPERATOR pt managed meds independently. She plans on following up with PCP. She declines home PT. [facility] Intake and CM updated, no detention needs identified.
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
[2025-02-15 15:08] VITALS: BP 102/58
--- NOTE | 2025-02-15 15:24 | PN.CDI ---
CDI
- -
CDI:
Physician Documentation Request
Admit Date: 02/12/25 15:12
Dear Doctor Ellen/Resident ,
Please review the following and provide your response in the progress notes.
Clinical Indicators:
Pt admitted with change in MS/obtunded
Documented per ED, ' She was found with agonal respirations and pinpoint pupils. She was given 1 mg of Narcan earlier...obtunded...The patient has trouble focusing and could not accurately state her current last name (continued to state her maiden
name), poor insight and judgment....'
Progress notes 02/13-02/15,' change in MS/obtundation, resolved Suspected opioid overdose secondary to medicating with opioids, benzodiazepines, tricyclic antidepressants..'
Based on the above, could you clarify in the Progress Notes and Discharge Summary which, if any of the following, is the most likely etiology of the confusion/altered mental status.
Toxic Encephalopathy
Drug induced encephalopathy
Change in MS only
Other ( please specify)
Use of terms such as suspected, likely, concern for, or probable (associated with a specific diagnosis that is being evaluated, monitored, or treated as if it exists) are acceptable and can be coded in the inpatient setting, when documented at the
time of discharge.
Thank you,
Bety Redding RN
CDI Specialist
[place] [facility]
Please use your independent medical judgment in providing your response.
[2025-02-15 15:32] LABS: Glucose - Point of Care 197 mg/dl (70-99)
--- NOTE | 2025-02-15 15:33 | PN.CDI ---
CDI
- -
CDI:
Physician Documentation Request
Admit Date: 02/12/25 15:12
Dear Doctor Ellen/Resident,
Please review the following and provide your response in the progress notes.
Clinical Indicators:
Pt admitted with change in MS/obtunded/suspected opioid overdose
Documented in H&P and progress notes, ' change in MS/obtunded--Suspected opioid overdose secondary to medicating with opioids, benzodiazepines, tricyclic antidepressants--admit to IMU--consult Dr. Joy from pain management...'
Pt home medications includes Oxycodone. Please clarify if there is a diagnosis associated with the above medication usage.
Opioid dependence, continuous/daily use.
Opioid dependence, intermittent/not daily use
Other ( please specify)
Use of terms such as suspected, likely, concern for, or probable (associated with a specific diagnosis that is being evaluated, monitored, or treated as if it exists) are acceptable and can be coded in the inpatient setting, when documented at the
time of discharge.
Thank you,
Bety Redding RN
CDI Specialist
[place] [facility]
Please use your independent medical judgment in providing your response.
--- NOTE | 2025-02-15 16:10 | CM ---
Per physician resident, patient is stable for d/c today, however, per nurse, patient reports that she does not feel well enough to go home.
Hospitalist agreeable to hold d/c for today and re-evaluate tomorrow.
Per [facility] liaison, met w/ patient, no halfway need and patient declined home PT. Spouse is supportive at home, patient follows pain management and PCP
Plan: Home; no needs when stable
[2025-02-15] MEDS: NOVOLOG FLEXPEN-HIGH RESISTANCE 2 UNITS SC (17:11)
[2025-02-15] MEDS: LOVENOX 40 MG SC (17:11)
[2025-02-15] MEDS: SEROQUEL PO ×2 (17:12→17:21)
[2025-02-15 19:30] VITALS: BP 147/75
[2025-02-15 20:48] LABS: Glucose - Point of Care 190 mg/dl (70-99)
[2025-02-15] MEDS: SEROQUEL 200 MG PO (21:06)
[2025-02-15] MEDS: LANTUS 0.14 UNITS SC (23:00)
[2025-02-15 23:38] VITALS: BP 125/62
[2025-02-16] VITALS (8 sets, daily range): BP systolic 99–130; BP diastolic 53–70; PULSE 59; BMI 20.6
[2025-02-16 03:06] LABS: Glucose - Point of Care 50 mg/dl (70-99)
[2025-02-16 03:27] LABS: Glucose - Point of Care 65 mg/dl (70-99)
[2025-02-16 03:46] LABS: Glucose - Point of Care 65 mg/dl (70-99)
[2025-02-16] MEDS: DEXTROSE 50% SYRINGE 12.5 GRAMS IV (03:50)
[2025-02-16 04:17] LABS: Glucose - Point of Care 173 mg/dl (70-99)
[2025-02-16] MEDS: TYLENOL 650 MG PO ×6 (04:56→23:10)
[2025-02-16] MEDS: TORADOL 15 MG IV ×4 (04:59→23:10)
[2025-02-16] MEDS: LINZESS 145 MCG PO (04:59)
[2025-02-16] MEDS: NEURONTIN 600 MG PO ×3 (08:07→21:09)
[2025-02-16] MEDS: NICODERM TRANSDERMAL 21 MG TRANSDERM (08:08)
[2025-02-16] MEDS: SEROQUEL 100 MG PO (08:08)
[2025-02-16] MEDS: CYMBALTA DELAYED RELEASE 120 MG PO (08:08)
[2025-02-16 08:12] LABS: Glucose - Point of Care 44 mg/dl (70-99)
[2025-02-16 08:13] LABS: % Basophils 0.7 % (0-2); % Eosinophils 3.2 % (0-6); % Immature Granulocytes 0.2 % (0-0.5); % Lymphocytes 31.9 % (20.5-51.1); % Monocytes 7.2 % (1.7-9.3); % Neutrophils 56.8 % (42.2-75.2); Absolute Basophils 0.1 10^3/uL (0-0.2); Absolute Eosinophils 0.3 10^3/uL (0-0.7); Absolute Lymphocytes 2.8 10^3/uL (1.2-3.4); Absolute Monocytes 0.6 10^3/uL (0.1-0.6); Absolute Neutrophils 4.9 10^3/uL (1.4-6.5); Hematocrit 36.3 % (37.0-47.0); Hemoglobin 12.1 g/dL (12.0-16.0); Mean Corp Hgb Conc. 33.3 g/dL (33.0-37.0); Mean Corpuscular Hgb 32.3 pg (27.0-31.0); Mean Corpuscular Volume 96.8 fL (81.0-99.0); Mean Platelet Volume 12.2 fL (7.4-10.4); Nucleated Red Blood Cells % 0 %; Platelet Count 254 10^3/uL (130-400); Red Blood Cell Count 3.75 10^6/uL (4.20-5.40); Red Cell Dist. Width 13.3 % (11.5-14.5); White Blood Cell Count 8.6 10^3/uL (4.8-10.8)
[2025-02-16] MEDS: WELLBUTRIN REGULAR RELEASE PO (08:19)
[2025-02-16 08:42] LABS: Glucose - Point of Care 83 mg/dl (70-99)
--- NOTE | 2025-02-16 09:40 | PTCARENOTE ---
Pt out of bd to chair this am, awake and alert . Blood sugar 44 - gave 4 oz OJ , recheck 83. Had jani crackers and is waiting for breakfast.
[2025-02-16] MEDS: NOVOLOG FLEXPEN-HIGH RESISTANCE SC (09:44)
[2025-02-16 09:57] LABS: Blood Urea Nitrogen 20 mg/dl (7-17); Calcium 8.7 mg/dl (8.4-10.2); Carbon Dioxide 22 mmol/L (22-30); Chloride 110 mmol/L (98-107); Estimated Creatinine Clearance 76 ml/min; Glucose 68 mg/dl (70-99); Potassium 4.1 mmol/L (3.5-5.1); Sodium 140 mmol/L (135-145); eGFR > 60.00
[2025-02-16 11:59] LABS: Glucose - Point of Care 148 mg/dl (70-99)
[2025-02-16] MEDS: STERILE WATER FOR INJECTION 10 ML IV (12:19)
[2025-02-16] MEDS: ROCEPHIN 1000 MG IV (12:21)
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
[2025-02-16] MEDS: NOVOLOG FLEXPEN-HIGH RESISTANCE 1 UNITS SC ×2 (15:07→16:56)
[2025-02-16 16:39] LABS: Glucose - Point of Care 142 mg/dl (70-99)
[2025-02-16] MEDS: LOVENOX 40 MG SC (16:48)
[2025-02-16 20:58] LABS: Glucose - Point of Care 209 mg/dl (70-99)
[2025-02-16] MEDS: SEROQUEL 200 MG PO (21:11)
[2025-02-17 03:16] VITALS: BP 119/57
[2025-02-17] MEDS: TYLENOL 650 MG PO ×6 (04:11→23:05)
[2025-02-17] MEDS: TORADOL 15 MG IV ×4 (05:31→23:05)
[2025-02-17] MEDS: LINZESS 145 MCG PO (05:31)
[2025-02-17 05:32] VITALS: BMI 20.8
[2025-02-17 07:07] LABS: Glucose - Point of Care 178 mg/dl (70-99)
[2025-02-17 07:30] VITALS: BP 124/68
[2025-02-17 08:17] LABS: ALT (SGPT) 23 U/L (0-35); AST (SGOT) 21 U/L (14-36); Albumin 2.8 g/dl (3.5-5.0); Alkaline Phosphatase 103 U/L (38-126); Blood Urea Nitrogen 18 mg/dl (7-17); Carbon Dioxide 30 mmol/L (22-30); Chloride 106 mmol/L (98-107); Estimated Creatinine Clearance 76 ml/min; Glucose 189 mg/dl (70-99); Potassium 4.5 mmol/L (3.5-5.1); Sodium 140 mmol/L (135-145); Total Bilirubin 0.3 mg/dl (0.2-1.3); Total Protein 4.9 g/dl (6.3-8.2); eGFR > 60.00
[2025-02-17 08:34] LABS: % Basophils 0.7 % (0-2); % Immature Granulocytes 0.4 % (0-0.5); % Lymphocytes 21.5 % (20.5-51.1); % Neutrophils 66.4 % (42.2-75.2); Absolute Basophils 0.1 10^3/uL (0-0.2); Absolute Eosinophils 0.5 10^3/uL (0-0.7); Absolute Lymphocytes 2.4 10^3/uL (1.2-3.4); Absolute Monocytes 0.8 10^3/uL (0.1-0.6); Absolute Neutrophils 7.6 10^3/uL (1.4-6.5); Hematocrit 37.3 % (37.0-47.0); Hemoglobin 12.2 g/dL (12.0-16.0); Mean Corp Hgb Conc. 32.7 g/dL (33.0-37.0); Mean Corpuscular Hgb 31.9 pg (27.0-31.0); Mean Corpuscular Volume 97.4 fL (81.0-99.0); Mean Platelet Volume 11.8 fL (7.4-10.4); Nucleated Red Blood Cells % 0 %; Platelet Count 272 10^3/uL (130-400); Red Blood Cell Count 3.83 10^6/uL (4.20-5.40); Red Cell Dist. Width 13.1 % (11.5-14.5); White Blood Cell Count 11.4 10^3/uL (4.8-10.8)
[2025-02-17] MEDS: NOVOLOG FLEXPEN-HIGH RESISTANCE 2 UNITS SC (08:54)
[2025-02-17] MEDS: NICODERM TRANSDERMAL 21 MG TRANSDERM (08:55)
[2025-02-17] MEDS: CYMBALTA DELAYED RELEASE 120 MG PO (08:56)
[2025-02-17] MEDS: NEURONTIN 600 MG PO ×3 (08:56→22:08)
[2025-02-17] MEDS: WELLBUTRIN REGULAR RELEASE PO (08:57)
[2025-02-17] MEDS: SEROQUEL 100 MG PO (08:57)
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
[2025-02-17 11:56] VITALS: BP 104/58
[2025-02-17 12:43] LABS: Glucose - Point of Care 264 mg/dl (70-99)
[2025-02-17] MEDS: NOVOLOG FLEXPEN-HIGH RESISTANCE 7 UNITS SC ×2 (13:58→17:45)
[2025-02-17 15:35] VITALS: BP 115/53
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
[2025-02-17] MEDS: LOVENOX 40 MG SC (17:08)
[2025-02-17 17:25] LABS: Glucose - Point of Care 258 mg/dl (70-99)
[2025-02-17] MEDS: SENOKOT-S 1 TABLET PO (17:47)
--- NOTE | 2025-02-17 19:00 | W.PN.UPDATE ---
Update Note
Progress Note Update
-Chronic pain following prior Whipple's procedure
- Opioid dependence, continuous/daily use:
Has intrathecal left-sided abdominal pain pump
Holding additional PO/IV Dilaudid to avoid over medication
Continue Toradol, started trial of lidocaine cream
Encourage continued follow-up with pain specialist Dr. Joy
--- NOTE | 2025-02-17 19:04 | W.PN.UPDATE ---
Update Note
Progress Note Update
Suspected opioid overdose secondary to medicating with opioids, benzodiazepines, tricyclic antidepressants
Drug induced encephalopathy
Resolved:
- No lethargy, unresponsives, shallow breathing, pinpoint pupils,
-Respiratory rate is 18 and oxygen saturation is 99 on room air
-Physical therapy recommends first-floor set up with home health services
-Continue to follow-up with Dr. Joy, her pain specialist
- No Dilaudid in hospital or on discharge
-Will be discharged with lidocaine cream, Tylenol for pain management
[2025-02-17 19:33] VITALS: BP 109/48
[2025-02-17 21:33] LABS: Glucose - Point of Care 193 mg/dl (70-99)
[2025-02-17] MEDS: SEROQUEL 200 MG PO (22:05)
[2025-02-17] MEDS: LANTUS 0.05 UNITS SC (22:08)
[2025-02-17 23:15] VITALS: BP 117/67
[2025-02-18 03:12] VITALS: BP 117/63
[2025-02-18] MEDS: TYLENOL 650 MG PO ×3 (04:04→13:08)
[2025-02-18] MEDS: LINZESS 145 MCG PO (05:11)
[2025-02-18] MEDS: TORADOL 15 MG IV (05:14)
[2025-02-18 05:56] VITALS: BMI 20.7
[2025-02-18 07:28] LABS: Glucose - Point of Care 105 mg/dl (70-99)
[2025-02-18 07:30] VITALS: BP 154/96
[2025-02-18 07:59] LABS: Hematocrit 34.1 % (37.0-47.0); Hemoglobin 11.4 g/dL (12.0-16.0); Mean Corp Hgb Conc. 33.4 g/dL (33.0-37.0); Mean Corpuscular Hgb 32.3 pg (27.0-31.0); Mean Corpuscular Volume 96.6 fL (81.0-99.0); Mean Platelet Volume 12.4 fL (7.4-10.4); Platelet Count 243 10^3/uL (130-400); Red Blood Cell Count 3.53 10^6/uL (4.20-5.40); White Blood Cell Count 10.4 10^3/uL (4.8-10.8)
[2025-02-18 08:47] LABS: Blood Urea Nitrogen 19 mg/dl (7-17); Calcium 8.8 mg/dl (8.4-10.2); Carbon Dioxide 27 mmol/L (22-30); Chloride 107 mmol/L (98-107); Estimated Creatinine Clearance 76 ml/min; Glucose 124 mg/dl (70-99); Potassium 4.5 mmol/L (3.5-5.1); Sodium 141 mmol/L (135-145); eGFR > 60.00
[2025-02-18] MEDS: NOVOLOG FLEXPEN-HIGH RESISTANCE SC (08:53)
[2025-02-18] MEDS: NICODERM TRANSDERMAL 21 MG TRANSDERM (08:53)
[2025-02-18] MEDS: NEURONTIN 600 MG PO (08:54)
[2025-02-18] MEDS: CYMBALTA DELAYED RELEASE 120 MG PO (08:54)
[2025-02-18] MEDS: SEROQUEL 100 MG PO (08:55)
[2025-02-18] MEDS: WELLBUTRIN REGULAR RELEASE PO (08:59)
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
[2025-02-18 11:48] VITALS: BP 90/53
[2025-02-18 12:13] LABS: Glucose - Point of Care 233 mg/dl (70-99)
--- NOTE | 2025-02-18 13:17 | CM ---
Patient is stable for d/c, d/c order is placed.
CM met w/ patient bedside, patient upset as she stated she does not feel well to go home today. Patient stated she wants to go home but does not feel well and have concerns about her BP. Patient was extremely upset, crying, stating that she has not
had the best experience w/ care team and states she doesn't feel like anybody cares. Patient stated she is pleased w/ the physician resident as he is very nice and that she can tell he 'has a good heart'. Patient was offered to see a patient
advocate as she explained how unsatisfied she was w/ the interaction she had w/ the doctor, however, she declined this. CM discussed patient's option to appeal d/c as the IMM was reviewed, patient declined this. Patient requested a Holy Communion,
nurse at bedside, will assist w/ this. Patient shared her son came to see her lastnight and he appeared stable as he gave her a hug but still expressed fearfulness. Patient requested pain medication to nurse, however, IV med has been discontinued
and Tylenol was offered. Patient became upset and stated she wants to go home, placed call to spouse to come and pick her up.
CM met w/ Loni/[facility] county worker, informed that patient is being d/c today and is upset. ARMANI explained that per PT/OT there are concerns about patient eating at home and presenting as a failure to thrive. Loni stated she will discuss w/ patient the
option of mental health resources for herself.
[facility] was referred to. Per [facility] liaison, patient doesn't have a fdc need and has declined PT.
Plan: Home; no needs
[2025-02-18] MEDS: NOVOLOG FLEXPEN-HIGH RESISTANCE 4 UNITS SC (13:38)
[2025-02-18 14:08] VITALS: BP 88/58; PULSE 56
[2025-02-18 14:43] VITALS: BP 88/58
[2025-02-18 15:00] VITALS: BP 114/60
--- NOTE | 2025-02-18 18:21 | W.DCSUMMARY ---
Documented by User: Jorge Raymond MD, Resident 02/18/25 19:03
Discharge Summary
Discharge Data
Date of Admission: 02/12/25
Date of Discharge: 02/18/25
-
Pending Results: No
Hospital Course
Discharging Physician : Dr. Destini Hughes and Dr. Jorge Raymond
Disposition : Home
Primary care physician : Unknown
Principal Discharge diagnosis : Change in mental status/ obtundation, subjective dysphagia, Microscopic hematuria
Chronic Discharge diagnosis : Type 2 diabetes, Chronic pain following Whipples procedure, depression, anxiety
Hospital Course : 64-year-old female with a past medical history of insulin-dependent diabetes mellitus, depression, anxiety, on chronic pain management post Whipple's procedure 4 years prior, was found other by her in an obtunded state.
He checked her blood sugar using a glucometer at home since she is a diabetic and found her blood sugar to be 49, went up to 75 after administration of orange juice. Still not responsive so they called EMS and she arrived to [facility]. Has an
intrathecal pain pump on the left side of her abdomen for chronic pancreatitis treated through Whipple's procedure. At the time of admission was on hydromorphone administered by her pain specialist at [facility].
Problem #1: Change in mental status/obtunded---suspected inadvertent drug overdose. Drug screen on admission was positive for opioids, benzodiazepines, and tricyclic antidepressants. Patient recently had pain medication adjusted with her pain
doctor. pain doctor was consulted and advised on holding oral hydromorphone now and at discharge until seen outpatient. Physical therapy cleared patient for home health. On discharge patient is hemodynamically stable, afebrile, alert and oriented.
Problem #2: Microscopic hematuria---urinalysis on admission positive for RBCs. Patient complains of urinary frequency. No recent history of coagulants, antiplatelet agents, UTIs, kidney stones, dysuria. Renal ultrasound with bladder is negative
for hydronephrosis, nonobstructing stones in right kidney, possible cystitis. Patient was started on empiric ceftriaxone and then discontinued after urine culture results negative.
Problem #3: Chronic pain due to Whipple's procedure---on intrathecal left-sided abdominal pump. Dilaudid pills were held by pain specialist Dr. Joy. Pain during stay is managed on Toradol and lidocaine cream. Follow-up with Dr. Joy
outpatient. On discharge, manage pain with Tylenol and lidocaine cream.
Problem #4: Insulin-dependent diabetes mellitus---patient had multiple low blood glucose measures during hospital stay. No symptoms of hypoglycemia like tremors, anxiety, palpitations, sweating, confusion. Started on diabetic diet. Initially was
placed on glargine 22 units which was her home dose, then decreased to 14 units which still did not control her low blood sugar. Then long-acting insulin was canceled while continuing SSI and hypoglycemia improved from 68 to 189. On discharge
patient is placed on 5 units of glargine as she does not want to comply with diabetic diet. Repeat CMP in 1 week with PCP.
Problem #5: Depression/anxiety---restarted on bupropion, duloxetine, alprazolam after obtundation resolved. Continue on discharge.
Problem #6: Subjective dysphagia---patient complained of nasal regurgitation and inability to swallow. Speech was consulted. Video swallowing exam showed no evidence for airway aspirate. Continue on regular /thin diet.
Important imaging findings :
Head CT 02/12/25:
IMPRESSION:
No acute intracranial abnormality.
Chest x-ray 02/12/25:
IMPRESSION:
No radiographic evidence of acute cardiopulmonary abnormality.
Renal ultrasound 02/14/25:
IMPRESSION:
No hydronephrosis. There are nonobstructing stones in the interpole of the right kidney measuring up to 1.5 cm.
Debris is present within the urinary bladder which can be seen with cystitis. Recommend correlation with urinalysis.
Procedure findings :
Videofluoroscopy swallow exam 02/18/2025:
IMPRESSION:
No fluoroscopic evidence for airway aspirate
Discharge Plan
-
Patient Disposition: Home (Routine Discharge)
Discharge Diagnosis/Procedures: Opioid overdose secondary to medicating with opioids, benzodiazepine, TCA
Nasal regurgitation
Microscopic hematuria
Hypoglycemia
Chronic pain due to Whipple's procedure
Depression/anxiety
Condition: Fair
Diet: As tolerated and Diabetic, Carb Controlled
Additional Diets: 1. Regular/thin liquids
2. General Aspiration and reflux precautions
Activity: With assistance
Driving Restrictions: As prior to admission
Bathing Restrictions: None
Other Services: PT and OT
Referrals:
NONE,* [Family Provider] -
Additional Discharge Medication Instructions: Stop oral hydromorphone tablets until seen by [employer]
Follow-up with pain management
For your diabetes, we have made changes in dose of your medication until you see your family doctor.
-Your mealtime insulin (NovoLog) decreased to 3 units before each meal
-Long-acting insulin(insulin glargine) decrease to 5 units at bedtime
Prescriptions:
New
insulin glargine 100 unit/mL (3 mL) insulin pen
5 unit SC QPM 30 Days Qty: 1.5 0RF
Continued
tizanidine 4 mg tablet
4 mg PO HS
Hydromorphone Bupivicaine Pump
1 dose intrathecal .CONTINUOUS
Rx Instructions:
02/12/25: confirmed with [facility]
Medtronic impantable pump - intrathecal continuous infusion
hydromorphone 0.208 mg/hr ; bupivicaine 0.1029 mg/hr
Last filled 01/01/25; next fill due 02/15/25
gabapentin 600 mg tablet
600 mg PO TID Qty: 0 0RF
quetiapine 200 mg tablet
200 mg PO QPM Qty: 0 0RF
quetiapine 100 mg tablet
100 mg PO DAILY Qty: 0 0RF
alprazolam 0.5 mg tablet
0.5 mg PO BID Qty: 0 0RF
bupropion HCl 75 mg tablet
75 mg PO DAILY Qty: 0 0RF
duloxetine 60 MG capsule,delayed release(DR/EC)
120 mg PO DAILY Qty: 0 0RF
Linzess 145 mcg capsule
145 mcg PO DAILY Qty: 0 0RF
Movantik 25 mg tablet
25 mg PO DAILY Qty: 0 0RF
Changed
insulin aspart U-100 [Novolog U-100 Insulin aspart] 100 unit/mL solution
3 unit SC MEALS Qty: 30 0RF
Discontinued
hydromorphone 4 mg tablet
4 mg PO Q6HPRN PRN (Reason: severe/breakthrough pain)
Discharge Orders:
Discharge Patient (As Directed); Ordered 02/18/25
Ordered By: Christina Doyle
Discharge Date and Time
Discharge Date/Time: 02/18/25 15:45
Print Language: NIGERIEN

Documented by User: Destini Hughes MD 02/19/25 13:14
Discharge Summary
Discharge Data
Date of Admission: 02/12/25
Date of Discharge: 02/19/25
Hospital Course
Discharging Physician : Dr. Destini Hughes and Dr. Jorge Raymond
Disposition : Home
Primary care physician : Unknown
Principal Discharge diagnosis : Change in mental status/ obtundation due to overmedication, subjective dysphagia, Microscopic hematuria
Chronic Discharge diagnosis : Type 2 diabetes/insulin-dependent, Chronic pain following Whipples procedure, depression/anxiety
Hospital Course : 64-year-old female with past medical history as stated above, who presented with obtundation mental status state. He checked her blood sugar using a glucometer at home and noted that she was hypoglycemic
(blood sugar 49 improved to 75 after administration of orange juice). Despite improvement of her hypoglycemia, she was still unresponsive, so EMS was called.
Of note, she has an intrathecal pain pump on the left side of her abdomen for chronic pancreatitis pain following her Whipple's procedure.
She follows with outpatient pain specialist for her chronic pain control.
Problem #1: Change in mental status/obtundation, suspect due to inadvertent drug overdose. Her drug screen on admission was positive for opioids, benzodiazepines, and tricyclic antidepressants. Patient recently had pain medication adjusted by her
pain doctor. Her pain doctor was consulted and advised her on hold off on oral hydromorphone going forward until further advised. She was cleared by physical therapy to return home with home health. On discharge, patient was hemodynamically stable,
afebrile, alert and oriented x3.
Problem #2: Microscopic hematuria. Her urinalysis on admission was positive for RBCs. Her renal ultrasound with bladder was negative for hydronephrosis, showed nonobstructing stones in right kidney, and possible cystitis. Patient was started on
empiric ceftriaxone which was then discontinued after her urine culture result came back to be negative.
Problem #3: Chronic pain following Whipple's procedure, on intrathecal left-sided abdominal pump. Dilaudid pills were held by pain specialist Dr. Joy. Pain during stay is managed on Toradol and lidocaine cream. Follow-up with Dr. Joy
outpatient.
Problem #4: Insulin-dependent diabetes mellitus. Patient had multiple low blood glucose during hospital stay. Her long acting insulin was decreased to 5 units HS. She was advised to continue carb controlled diet going forward.
Of note, her A1c was at 9%.
Problem #5: Depression/anxiety---restarted on bupropion, duloxetine, alprazolam after obtundation resolved. Continue on discharge.
Problem #6: Subjective dysphagia---patient complained of nasal regurgitation and inability to swallow. Speech was consulted. Video swallowing exam showed no evidence for airway aspirate. Continue on regular /thin diet.
Important imaging findings :
Head CT 02/12/25:
IMPRESSION:
No acute intracranial abnormality.
Chest x-ray 02/12/25:
IMPRESSION:
No radiographic evidence of acute cardiopulmonary abnormality.
Renal ultrasound 02/14/25:
IMPRESSION:
No hydronephrosis. There are nonobstructing stones in the interpole of the right kidney measuring up to 1.5 cm.
Debris is present within the urinary bladder which can be seen with cystitis. Recommend correlation with urinalysis.
Procedure findings :
Videofluoroscopy swallow exam 02/18/2025:
== END 2025-02-18 15:45 | disposition home or self-care (01) | DRG 917 ==
LOC: 4 WEST ACU 15:12
PROVIDERS: ADMITTING PHYSICIAN Internal Medicine; ATTENDING PHYSICIAN Internal Medicine; EMERGENCY PHYSICIAN Emergency Medicine; OTHER PHYSICIAN Psychiatry & Neurology Neurology
DX: T40.2X1A Poisoning by other opioids, accidental (unintentional), initial encounter (principal); G92.8 Other toxic encephalopathy; K86.1 Other chronic pancreatitis; F11.20 Opioid dependence, uncomplicated; F17.210 Nicotine dependence, cigarettes, uncomplicated; E11.65 Type 2 diabetes mellitus with hyperglycemia; E11.649 Type 2 diabetes mellitus with hypoglycemia without coma; F32.A Depression, unspecified; F41.9 Anxiety disorder, unspecified; F10.20 Alcohol dependence, uncomplicated; G89.29 Other chronic pain; Z79.4 Long term (current) use of insulin; Z90.411 Acquired partial absence of pancreas
CPT/HCPCS: 70450; 71045; 74230; 76770; 80048; 80053; 80306; 80307; 81003; 81015; 82077; 82550; 82805; 82962; 83036; 83690; 83735; 84443; 85025; 85027; 87086; 92526; 92610; 92611; 93005; 96360; 96361; 97116; 97162; 97166; 97530; 97535; 99291